=== PATIENT | male | born 1955 | race Caucasian/White ===

== ENCOUNTER 2019-05-30 08:03 | Observation (INO) | payer BC, SELFPAY ==
[2019-05-30] VITALS (12 sets, daily range): BP systolic 114–180; BP diastolic 59–106; PULSE 54–65; RESP 11–20; TEMP 36–36.8; O2SAT 97–98
[2019-05-30] MEDS: Lactated Ringers 1,000 ML 80 ML IV (08:48)
--- NOTE | 2019-05-30 11:14 | W.PM.HP.N ---
Date of service: 05/30/19 Time of Service: 11:14 Assessment and Plan Assessment and plan (1) Bladder mass: Status: Acute (2) Gross hematuria: Status: Acute (3) Elevated PSA: Status: Acute History of Present Illness History of Present Illness Chief Complaint: Hematuria Narrative: 1) Elevated PSA: (2) Prostate nodule: (3) Bladder mass: (4) Gross hematuria: Greater than 50% of this 45 min OV was in counseling and coordination of the assessment/plan. We reviewed reasons for gross hematuria. We also discussed the CTU, which revealed a 2cm mass in the right lateral bladder adjacent to the UVJ. In addition, we correlated his ROMAN, which revealed nodular area to the left lateral area, to the elevated of PSA of 22.9ng/ml. U/A today was negative for infection but did continue to show blood, but only on a microscopic level. Bladder scan noted a 50cc PVR. Based upon exam, patient hx, and imaging/testing done by PCP, we discussed the next steps, which include cysto with TURB-T and prostate resection. Both of these can done in the OR as soon as next week as long as pt is not taking ASA/NSAIDs 3-5 days prior. Pre-op orders were completed and given to the nurse for scheduling. He will be listed as an AM admit and is aware that there is a possibility of overnight stay. Pending the procedure, which two biopsies are planned - 1 for the bladder and 1 for the prostate, pt will have f/u in the office for further discussion. Dictation was done by [employer] voice recognition. Errors may be present within the note. Plan Detail Orders: Urinalysis Dip Only 05/26/19 R31.9 Bladder Residual Scan (Office) 05/26/19 HPI HPI Ramírez is a 63 y/o male here for gross hematuria. He first noticed gross hematuria about 4 years ago. It resolved after a few days. No clots at that time. 2017 was the next bout after a fall. It again lasted a few days and was without clots. March of 2019 he had gross hematuria again that lasted a few days plus had scabs and blood clots. He adds to this information that he is color blind so there may have been more blood but at those mentioned times he could see a drastic change in his urine color. He notes that he had a CTU and PSA done recently via his PCP and that he is aware of the results. Currently he has not seen blood in his urine for the past few weeks. No dysuria, frequency or urgency. ? of retention. He states he needs to push and has a weak stream. Nocturia and the feeling of incomplete emptying. He is currently not taking any prostate medications. 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 Smoker 20 years ranging from 1/2-5ppd Occ beer intake Allergies Reviewed elsewhere in the chart Medications Reviewed elsewhere in the chart Family Hx No known family hx of urology concerns/Ca Review of Systems Const: Denies chills, fever(s) or weight loss Details: No ABN bleeding or bruising No long bone/skeletal pains Card: Denies chest pain or dyspnea Resp: Denies dyspnea GI: Denies abdominal pain, constipation or diarrhea : Reports as per HPI, hematuria, nocturia and urinary hesitancy; Denies dysuria, flank pain, urinary frequency, urinary incontinence or urinary urgency Exam Const Orientation: alert, awake and oriented x3 Other: VS reviewed that were done by nurse Eyes Sclera: sclerae normal Resp Effort & Inspection: normal respiratory effort GI Inspection: normal to inspection and non-distended Palpation: soft and nontender Rectal Exam: prostate abnormal enlarged and nodule (left lateral); nontender General: No CVA tenderness Extrem General: full ROM Vital Signs 05/26/19 14:32 Height 5 ft 10 in Weight 212 lb BMI 30.4 BP 135/93 H Pulse 92 H [facility] Medical History (Updated 05/30/19 @ 08:27 by Nyasia Barnes) Chronic fatigue syndrome Gastro-esophageal reflux disease with esophagitis History of fracture (Acute) left knee Polyarthropathy Skull fracture (Acute) Surgical History History of arthroscopic knee surgery (Chronic) History of colonoscopy (Chronic) History of esophagogastroduodenoscopy (EGD) (Chronic) History of knee replacement (Chronic) Social History Smoking/Tobacco Use Status: Former Tobacco Use Drug use: Occasionally Meds Home Medications and Allergies Home Medications Medication Instructions Recorded Confirmed Type aspirin [Aspirin Low-Strength] 81 mg PO DAILY tab-cap NS 06/13/13 05/30/19 History multivitamin [Daily Vitamin] 1 ea PO DAILY NS 06/13/13 05/30/19 History camphor-methyl salicyl-menthol 1 applic TOPICAL DAILY PRN 05/27/19 05/27/19 History cephalexin 2,000 mg PO DIRECTED 05/27/19 05/27/19 History ibuprofen 200 mg PO Q6H PRN 05/27/19 05/27/19 History Allergies Allergy/AdvReac Type Severity Reaction Status Date / Time No Known Allergies Allergy Unverified 05/30/19 08:28 Exam Resp Effort & Inspection: normal respiratory effort Auscultation: clear to auscultation bilaterally Cardio Rate: regular rate Rhythm: regular rhythm Results Last Vital Signs Temp 36.3 C L 05/30/19 08:33 Pulse 56 L 05/30/19 08:33 Resp 16 05/30/19 08:33 BP 126/82 05/30/19 08:33 Pulse Ox 97 05/30/19 08:33
[2019-05-30] MEDS: ceFAZolin 2 GM/50 ML BAG IVPB (11:51)
[2019-05-30] MEDS: Lidocaine 2% Jelly 6 ML SYR (12:09)
--- NOTE | 2019-05-30 12:29 | BLADDER_PTH ---
PATIENT: Aurelio Guan LOC: U#:[id number] AGE/SX: 63/M [facility] RE[facility]30/[address]: Aravind Gomez MD : 1955 BED: A DIS: 05/31/2019 SPEC #: [id number] RECD: 05/30/19 17:31 STATUS: ANA CRISTINA REQ #: [id number] YUN: 05/30/19 12:[address]: Aravind Gomez DEPT: Surgical Specimen RECD BY: Angeline Souza ENTERED: 05/30/19 17:32 SP TYPE: Bladder OTHR DR: Errol Anaya Tissues: 1 - BLADDER BIOPSY 2 - PROSTATE CURRETTINGS Procedures: GROSS AND MICRO LEVEL 4 Comments: [id number]
--- NOTE | 2019-05-30 14:12 | ROE_ITS ---
DATE OF PROCEDURE: May 30, 2019 PREOPERATIVE DIAGNOSIS: 1. Gross hematuria. 2. Bladder mass on CT scan. 3. Elevated PSA. POSTOPERATIVE DIAGNOSIS: Same. PROCEDURE: 1. Cystoscopy; transurethral resection of bladder tumor. 2. Transurethral prostate biopsy. SURGEON: Aravind Gomez M.D. ANESTHESIA: General. COMPLICATIONS: None. ESTIMATED BLOOD LOSS: Minimal. SPECIMENS REMOVED: 1. Bladder mass. 2. Prostate tissue. HISTORY: This is a 63-year-old gentleman who initially presented with gross hematuria. He was evalu ated with a CT urogram, which demonstrated a right-sided bladder mass. He presents now for transuret hral resection of any visible bladder mass. He's also found to have an elevated PSA. He is unsure of any prior PSA levels. His current result i s 22.9 ng/mL. While we are performing the transurethral resection of his bladder lesion, he is agreeable to transur ethral resection biopsies of the prostate. OPERATIVE REPORT: The patient was brought to the operating room on 05/30/2019. He was given a dose of IV antibiotics. After successful induction of general anesthesia, he was placed in the dorsal litho keisha position. His genitalia was prepped and draped sterilely. 2% Xylocaine jelly was then instilled into the urethra. A 24 [place] resectoscope sheath was passed t hrough the urethra into the bladder. The urethra and bladder were inspected with the 30-degree lens. The pendulous, bulbous and membranous urethras showed no strictures. The prostatic urethra showed si gnificant lateral lobe enlargement. The bladder neck was then entered and the bladder mucosa was inspected. Multiple papillary lesions were seen on the patient's right bladder wall. The largest of these lesio ns measured between 2 and 5 cm. Several smaller lesions were identified. Some stone debris was seen in the largest of the papillary lesions. No similar lesions were found on the left side of the bladder. We then utilized bipolar cautery and a resectoscope loop to resect all the visible tumor. We resecte d down to muscularis. All resected tissue was evacuated and sent to pathology for permanent section. We then switched over to a plasma button and cauterized the resection site for hemostasis. We then switched back to the resection loop, withdrew the scope into the prostatic urethra. Multiple transurethral resection biopsies were taken from the prostatic urethra. All prostate tissue was brenda cuated and sent to pathology for permanent section. We again switched to the plasma button and caute rized the resection site. Because of the depth of the resection in the bladder, we elected not to place intravesical chemothera py in the immediate postop period. We placed a 22 [place] hematuria catheter through the urethra into the bladder. We inflated the catheter balloon with 30 cc's of sterile water. We began continuous b ladder irrigation with saline and the irrigant remained clear. After the completion of the procedure, a digital rectal exam and bimanual exam was performed. No fix ed mass was found. The patient tolerated this procedure well with no complications. cc: Errol Anaya M.D.
[2019-05-30] MEDS: Lactated Ringers 1,000 ML 100 ML IV (14:16)
[2019-05-30] MEDS: ceFAZolin 1 GM/50 ML BAG IVPB (17:17)
[2019-05-30] MEDS: traMADol 50 MG TAB PO (20:23)
[2019-05-30] MEDS: Docusate Sodium 100 MG CAP PO (20:23)
[2019-05-31 00:08] VITALS: BP 104/58; PULSE 69; RESP 18; TEMP 36.7; O2SAT 95
[2019-05-31] MEDS: Lactated Ringers 1,000 ML 100 ML IV (00:36)
[2019-05-31] MEDS: ceFAZolin 1 GM/50 ML BAG IVPB (02:05)
[2019-05-31 05:10] VITALS: BP 115/71; PULSE 61; RESP 16; TEMP 36.7; O2SAT 96
[2019-05-31 06:57] LABS: HCT 40.7 % (40.0-50.0); HGB 13.5 g/dL (13.5-17.5); Mean Corp. HGB Concentration 33.2 g/dL (32.0-36.0); Mean Corpuscular Hemoglobin 29.4 pg (27.0-33.0); Mean Corpuscular Volume 88.7 fL (80-95); Mean Platelet Volume 10.5 fL (8.0-11.0); Platelet Count 180 x1000/uL (130-400); RBC 4.59 m/cumm (4.50-6.00); RBC Distribution Width 12.5 % (11.8-14.1); White Blood Cell Count 12.77 k/cumm (4.4-10.8)
[2019-05-31 07:08] LABS: Anion Gap 5.6 mmol/L (3-11); BUN 13 mg/dL (7-18); CO2 28.4 mmol/L (21.0-32.0); CREATININE 0.91 mg/dL (0.70-1.30); Calcium 8.5 mg/dL (8.5-10.1); Chloride 108 mmol/L (98-107); Glucose 110 mg/dL (74-106); Sodium 142 mmol/L (136-145)
--- NOTE | 2019-05-31 07:28 | W.PM.PROGNOT ---
Date of Service Date of service: 05/31/19 Time of Service: 07:28 Assessment and Plan Assessment and plan (1) Elevated PSA: Status: Acute (2) Bladder mass: Status: Acute Assessment and plan: We would discontinue his bladder irrigation. As long as the urine remains clear without irrigant, we will plugged the irrigation port and send this gentleman home with his catheter to a leg bag. He will return to our office in 3 to 5 days to have his catheter removed. His follow-up will depend on his surgical pathology. Subjective Subjective Interval history since last seen: He has had no clot retention overnight He did have some discomfort related to nocturnal tumescence with his catheter in place. Exam Narrative Exam Narrative: He looks well. He does not appear septic or toxic. His abdomen is soft with no mass His irrigant is clear He is awake and alert His labs from this morning are reviewed and are stable. Objective Objective Clinical Data: Abnormal lab results 05/31/19 05/31/19 Range/Units 06:20 06:20 WBC 12.77 H (4.4-10.8) k/cumm Chloride 108 H (98-107) mmol/L Glucose 110 H (74-106) mg/dL Vital Signs Temperature 36.7 C 05/31/19 05:10 Temperature Source Tympanic 05/31/19 05:10 Pulse 61 05/31/19 05:10 Pulse Rhythm Regular 05/30/19 19:39 Respiratory Rate 16 05/31/19 05:10 Respiratory Effort 05/30/19 19:39 Respiratory Depth Normal 05/30/19 19:39 Respiratory Pattern Normal 05/30/19 19:39 Blood Pressure 115/71 05/31/19 05:10 Pulse Oximetry 96 05/31/19 05:10 Respiratory End-tidal CO2 39 05/30/19 13:36 Oxygen Delivery Method Room Air 05/31/19 05:10 Oxygen Flow Rate 0 05/31/19 05:10 Pain Level 0 05/31/19 05:10 Intake & Output 05/30/19 05/30/19 05/31/19 11:59 23:59 11:59 Intake Total 2548.333 / 2548.333 240 / 240 Balance 2548.333 / 2548.333 240 / 240 Weight 93.9 kg Intake: IV 2047.333 / 2047.333 Oral 500 / 500 240 / 240 Other: Urine Color [place] Kin[place] Urine Appearance Clear Emesis Description None Laboratory Results WBC 12.77 k/cumm (4.4-10.8) H 05/31/19 06:20 RBC 4.59 m/cumm (4.50-6.00) 05/31/19 06:20 Hgb 13.5 g/dL (13.5-17.5) 05/31/19 06:20 Hct 40.7 % (40.0-50.0) 05/31/19 06:20 MCV 88.7 fL (80-95) 05/31/19 06:20 MCH 29.4 pg (27.0-33.0) 05/31/19 06:20 MCHC 33.2 g/dL (32.0-36.0) 05/31/19 06:20 RDW 12.5 % (11.8-14.1) 05/31/19 06:20 Plt Count 180 x1000/uL (130-400) 05/31/19 06:20 MPV 10.5 fL (8.0-11.0) 05/31/19 06:20 Sodium 142 mmol/L (136-145) 05/31/19 06:20 Potassium 4.0 mmol/L (3.5-5.1) 05/31/19 06:20 Chloride 108 mmol/L (98-107) H 05/31/19 06:20 Carbon Dioxide 28.4 mmol/L (21.0-32.0) 05/31/19 06:20 Anion Gap 5.6 mmol/L (3-11) 05/31/19 06:20 BUN 13 mg/dL (7-18) 05/31/19 06:20 Creatinine 0.91 mg/dL (0.70-1.30) 05/31/19 06:20 Estimated GFR/1.73 m2 >= 60.00 (mL/min/1.73m2) 05/31/19 06:20 Glucose 110 mg/dL (74-106) H 05/31/19 06:20 Calcium 8.5 mg/dL (8.5-10.1) 05/31/19 06:20
--- NOTE | 2019-05-31 07:31 | DSE_ITS ---
Date of service: 05/31/19 Time of Service: 07:31 DS: Diagnosis Discharge Diagnosis (1) Elevated PSA: Status: Acute (2) Bladder mass: Status: Acute Discharge Plan Disposition Patient Disposition: HOME Condition: Stable Discharge Details Reason For Visit: BLADDER TUMOR Admit Date/Time: 05/30/19 08:03 Admit Provider: Aravind Gomez Attending Provider: Aravind Gomez Primary Care Provider: Errol Anaya Hospital Course Hospital Course: The patient was brought to the operating room on 05/30/2019 where he underwent cystoscopy. We identified multiple papillary lesions within his bladder. His prostate showed because of the depth of resection, we did not place intravesical chemotherapy intraoperatively. We also took some transurethral biopsies of the prostate given that the patient has a history of an elevated PSA. Postoperatively, he was maintained on continuous bladder irrigation. By postoperative day #1 the irrigant was clear. His postoperative labs were normal. He was tolerating oral medications. His surgical pathology is still pending. On postoperative day #1 we are discontinuing his irrigant and hooking his catheter to a leg bag in preparation for discharge. Home Meds and New Rx's Prescriptions: New tramadol 50 mg tablet 50 mg PO Q6H PRN (Reason: pain) Qty: 20 RF: 0 No Action multivitamin [Daily Vitamin] 1 EACH tablet 1 ea PO DAILY RF: 0 aspirin [Aspirin Low-Strength] 81 MG tablet,chewable 81 mg PO DAILY RF: 0 ibuprofen 200 mg Capsule 200 mg PO Q6H PRNRF: 0 cephalexin 500 mg Capsule 2,000 mg PO DIRECTED RF: 0 camphor-methyl salicyl-menthol 4-30-10 % Cream 1 applic TOPICAL DAILY PRNRF: 0 Discharge Instructions Additional Instructions: Follow-up Thursday morning for catheter removal He will also need a follow-up appointment in 1 to 2 weeks to review the surgical pathology He should remain off work for the remainder of the week. No lifting over 20 pounds for 2 weeks total. He can then return to full activity. I have provided a letter for his work (can be found in his chart) Prescription for tramadol sent to pharmacy of choice Activity:: See above Equipment/Supplies:: Schumacher to leg bag Diet:: As Tolerated DS: Summary Status at Discharge Functional status at discharge: independent ambulation Overall status at discharge: patient is back to baseline Mental Status: mental status grossly normal Speech and Movement: speech and movement normal Mood: congruent mood Affect: normal affect Exam Narrative Exam Narrative: At the time of discharge, he looks well His vital signs are documented elsewhere in this chart His chest wall motion is normal. He is not short of breath at rest. His abdomen is soft with no guarding or rebound tenderness. His urine is clear with no clots He is awake, alert and oriented. At the time of discharge, his surgical pathology is still pending. His morning labs are listed below. Psych Mental Status: mental status grossly normal Speech and Movement: speech and movement normal Mood: congruent mood Affect: normal affect DS: Data Vitals/I&O Vitals and I&O: Vital Signs Temperature 36.7 C 05/31/19 05:10 Temperature Source Tympanic 05/31/19 05:10 Pulse 61 05/31/19 05:10 Pulse Rhythm Regular 05/30/19 19:39 Respiratory Rate 16 05/31/19 05:10 Respiratory Effort 05/30/19 19:39 Respiratory Depth Normal 05/30/19 19:39 Respiratory Pattern Normal 05/30/19 19:39 Blood Pressure 115/71 05/31/19 05:10 Pulse Oximetry 96 05/31/19 05:10 Respiratory End-tidal CO2 39 05/30/19 13:36 Oxygen Delivery Method Room Air 05/31/19 05:10 Oxygen Flow Rate 0 05/31/19 05:10 Pain Level 0 05/31/19 05:10 Intake & Output 05/30/19 05/30/19 05/31/19 11:59 23:59 11:59 Intake Total 2548.333 / 2548.333 240 / 240 Balance 2548.333 / 2548.333 240 / 240 Weight 93.9 kg Intake: IV 8.333 / 2048.333 Oral 500 / 500 240 / 240 Other: Urine Color [place] Urine Appearance Clear Emesis Description None Data Completed and Pending Labs on day of discharge: Labs from last 24 hours 05/31/19 05/31/19 06:20 06:20 WBC 12.77 H RBC 4.59 Hgb 13.5 Hct 40.7 MCV 88.7 MCH 29.4 MCHC 33.2 RDW 12.5 Plt Count 180 MPV 10.5 Sodium 142 Potassium 4.0 Chloride 108 H Carbon Dioxide 28.4 Anion Gap 5.6 BUN 13 Creatinine 0.91 Estimated GFR/1.73 m2 >= 60.00 Glucose 110 H Calcium 8.5 PFSH Medical History Chronic fatigue syndrome Gastro-esophageal reflux disease with esophagitis History of fracture (Acute) left knee Polyarthropathy Skull fracture (Acute) Surgical History History of arthroscopic knee surgery (Chronic) History of colonoscopy (Chronic) History of esophagogastroduodenoscopy (EGD) (Chronic) History of knee replacement (Chronic) Family History Mother No problems noted. Father No problems noted. Other Cancer Diabetes Heart disease Hypertension Substance abuse Social History Smoking/Tobacco Use Status: Former Tobacco Use Drug use: Occasionally
[2019-05-31 07:39] VITALS: BP 132/78; PULSE 61; RESP 16; TEMP 36.8; O2SAT 97
[2019-05-31] MEDS: Docusate Sodium 100 MG CAP PO (09:15)
[2019-05-31] MEDS: Multivitamin TAB 1 TAB PO (09:16)
== END 2019-05-31 10:15 | disposition home or self-care (01) ==
LOC: MS 05-31 07:36 → PDS 06-13 14:00 → MS 06-13 14:00
PROVIDERS: Admitting Provider Urology; PCP Family Medicine; Visit Provider Urology
PROC: 0TBB8ZZ Excision of Bladder, Via Natural or Artificial Opening Endoscopic (ICD-10-PCS; CPT 52235; principal; 2019-05-30 10:15)
PROC: 0VT08ZZ Resection of Prostate, Via Natural or Artificial Opening Endoscopic (ICD-10-PCS; CPT 52601; 2019-05-30 10:15)
DX: R97.20 Elevated prostate specific antigen [PSA] (principal); C67.9 Malignant neoplasm of bladder, unspecified; N32.89 Other specified disorders of bladder; R31.0 Gross hematuria
CPT/HCPCS: 52235; 55700; 80048; 85027; 88305; 99232; 99238; NC; J0690; J1100; J1885; J2405; J2704

== ENCOUNTER 2019-09-19 08:13 | Outpatient (CLI) | payer BC, SELFPAY ==
[2019-09-20 18:37] LABS: COVID-19 RT-PCR UVMMC Result Negative (Negative)
== END 2019-09-19 08:33 ==
PROVIDERS: PCP Family Medicine; Visit Provider Urology
DX: Z01.818 Encounter for other preprocedural examination (principal); Z11.59 Encounter for screening for other viral diseases
CPT/HCPCS: U0003

== ENCOUNTER 2019-09-22 07:20 | Day surgery (SDC) | payer BC, SELFPAY ==
[2019-09-22 07:20] VITALS: BP 141/89; PULSE 65; RESP 18; TEMP 36.5; O2SAT 97
[2019-09-22] MEDS: Lactated Ringers 1,000 ML 80 ML IV (07:55)
--- NOTE | 2019-09-22 08:33 | W.PM.HP.N ---
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 We will move ahead with cystoscopy and possible biopsy to ensure there is no recurrence or progression of his disease. If any suspicious lesions are present, we will be prepared to instill mitomycin-C into the bladder. (2) Bladder cancer: Status: Acute History of Present Illness History of Present Illness Chief Complaint: Bladder Cancer Narrative: This is a 63-year-old gentleman who has a history of hematuria and a bladder mass. 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 He had no sign of muscle invasion, there was a possibility of lamina propria invasion and he did have carcinoma in situ. He then completed a 6-week induction course of intravesical gemcitabine. He presents now for surveillance cystoscopy. He has not seen any gross hematuria. The urinary frequency and incontinence that had been present during his gemcitabine installations has improved dramatically. Review of Systems Narrative: No fevers or chills No vision change or dysphasia No diabetes or thyroid dysfunction No shortness of breath, cough or hemoptysis No chest pain or palpitations No nausea, vomiting, hepatitis, ulcers, jaundice, diarrhea or constipation No seizures, strokes or peripheral neuropathy No bleeding disorders or anemia No gout PFSH Social History Smoking/Tobacco Use Status: Former Tobacco Use Quit Date: 03/30/85 Alcohol Intake: current Alcohol Intake frequency: holidays/special occasions only Drug use: Occasionally Substance use type: marijuana Do you feel safe at home: Yes Additional Social history: not in a relationship Meds Home Medications and Allergies Home Medications Medication Instructions Recorded Confirmed Type aspirin [Aspirin Low-Strength] 81 mg PO DAILY tab-cap NS 06/13/13 09/22/19 History multivitamin [Daily Vitamin] 1 ea PO DAILY NS 06/13/13 09/22/19 History camphor-methyl salicyl-menthol 1 applic TOPICAL DAILY PRN 05/27/19 09/22/19 History cephalexin 2,000 mg PO DIRECTED 05/27/19 09/22/19 History ibuprofen 200 mg PO Q6H PRN 05/27/19 09/22/19 History tramadol 50 mg PO Q6H PRN #20 tab 05/31/19 09/22/19 Rx Allergies Allergy/AdvReac Type Severity Reaction Status Date / Time No Known Allergies Allergy Unverified 09/22/19 07:23 Exam Narrative Exam Narrative: He is in no current distress. He is cooperative. His vital signs are documented elsewhere His chest wall motion is normal. He is not short of breath at rest. His lungs are clear Cardiac exam shows a regular rate and rhythm. His abdomen is soft with no masses. He is awake and alert Results Last Vital Signs Temp 36.5 C 09/22/19 07:20 Pulse 65 09/22/19 07:20 Resp 18 09/22/19 07:20 BP 141/89 H 09/22/19 07:20 Pulse Ox 97 09/22/19 07:20 COVID-19 Screening In the past 14 days, have you traveled outside of [place]?: NO Had IN PERSON contact w/suspected or confirmed C-19 person: Yes
[2019-09-22] MEDS: ceFAZolin 1 GM/50 ML BAG IVPB (09:18)
[2019-09-22] MEDS: Lidocaine 2% Jelly 6 ML SYR (09:33)
--- NOTE | 2019-09-22 09:35 | PAPNONF_PTH ---
PATIENT: Aurelio Guan LOC: [facility] U#:[id number] AGE/SX: 63/M ROOM: RE09/22/[address]: Aravind Gomez MD : 1955 BED: DIS: 09/22/2019 SPEC #: [id number] RECD: 09/22/19 12:47 STATUS: ANA CRISTINA REQ #: [id number] YUN: 09/22/19 09:[address]: Aravind Gomez DEPT: [facility] Cytology RECD BY: Angeline Souza ENTERED: 09/22/19 12:48 SP TYPE: ROBI WILSON DR: Errol Anaya Tissues: 1 - BODY FLUID CYTO(NOT S/U/N/EM)[facility] Procedures: BODY FLUID CYTO(NOT SPU/UR/NIP/ENDOM)[facility] Comments: [id number] (TOTAL VOLUME = 100 ml's URINE (50 ml's URINE & 50 ml's CYTOLYT ADDED IN 2 CONTAINERS)
--- NOTE | 2019-09-22 09:42 | W.PM.DSUDISC ---
Discharge Plan Disposition Patient Disposition: HOME Condition: Stable Discharge Details Reason For Visit: bladder cancer Attending Provider: Aravind Gomez Primary Care Provider: Errol Anaya Home Meds and New Rx's Prescriptions: No Action multivitamin [Daily Vitamin] 1 EACH tablet 1 ea PO DAILY RF: 0 aspirin [Aspirin Low-Strength] 81 MG tablet,chewable 81 mg PO DAILY RF: 0 ibuprofen 200 mg Capsule 200 mg PO Q6H PRNRF: 0 cephalexin 500 mg Capsule 2,000 mg PO DIRECTED RF: 0 camphor-methyl salicyl-menthol 4-30-10 % Cream 1 applic TOPICAL DAILY PRNRF: 0 tramadol 50 mg tablet 50 mg PO Q6H PRN (Reason: pain) Qty: 20 RF: 0 Discharge Instructions Additional Instructions: We will call pt in @ 1 week with cytology result - ask pt to call my office if he has not heard results within 1 week As long as cytology is OK, pt will need cystoscopy in 3 months (can be in office or in OR) Activity:: Activity as Tolerated Shower/Bathe:: 24 hours Diet:: As Tolerated Discharge Orders Discharge Orders: Discharge Order (Routine); Ordered 09/22/19 Ordered By: Aravind Gomez DS: Diagnosis Discharge Diagnosis (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
--- NOTE | 2019-09-22 09:49 | W.PM.OP ---
Date of service: 09/22/19 Time of Service: 09:49 Operative Note Operative Note DATE OF PROCEDURE: 09/22/19 PRE-OP DIAGNOSIS: Bladder cancer POST-OP DIAGNOSIS: same PROCEDURE: Cystoscopy SURGEON: Aravind Gomez ANESTHESIA: other (General without intubation) ESTIMATED BLOOD LOSS: 0 PATHOLOGY: other (Urine for cytology) COMPLICATIONS: None Patient was transported to: same day Patient's condition: stable Indications: This is a 63-year-old gentleman who has a history of hematuria and a bladder mass. 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 There was concern that the lamina propria may have been involved but the muscularis was free of tumor. Did have carcinoma in situ. We were unable to obtain BCG for bladder installations, so he was treated with intravesical gemcitabine. He completed a 6-week induction course. He presents now for his first follow-up cystoscopy. Findings: No papillary or nodular lesions No erythematous patches of mucosa Procedure Description: The patient was brought to the operating room on 09/22/2019. After successful induction of general anesthesia he was placed in the dorsal lithotomy position. His genitalia is prepped and draped. 2% Xylocaine jelly was instilled into the urethra to act as a local anesthetic. A 22 Tamazight cystoscope was passed through the urethra into the bladder. Upon entering the bladder, the urine was collected and sent for cytology. The urethra and bladder were inspected with the 30 degree lens. The pendulous, bulbous and membranous urethra was appeared normal. The prostatic urethra showed some lateral lobe enlargement and increased vascularity, but no papillary lesions. The bladder neck was entered and the bladder mucosa was inspected. On the right side of the bladder, there was a scar from his previous transurethral resection. Both ureteral orifice ease appeared normal with no blood coming from either side. The remainder the bladder was smooth-walled with no papillary or nodular lesions. No erythematous patches worrisome for carcinoma in situ were identified. We reinspected the bladder using a 70 degree lens. This confirmed the absence of papillary or nodular lesions. Based on today's examination, there is no evidence of recurrent tumor. We have however sent a urine for cytology. As long as the cytology is unremarkable, we will plan on a surveillance cystoscopy in 3 months.
[2019-09-22] MEDS: Phenazopyridine 200 MG TAB PO (10:00)
[2019-09-22 10:24] VITALS: BP 132/88; PULSE 60; RESP 18; TEMP 36.5; O2SAT 98
== END 2019-09-22 11:10 | disposition home or self-care (01) ==
PROVIDERS: PCP Family Medicine; Visit Provider Urology
PROC: 0TBB8ZZ Excision of Bladder, Via Natural or Artificial Opening Endoscopic (ICD-10-PCS; CPT 52000; principal; 2019-09-22 08:45)
DX: C67.9 Malignant neoplasm of bladder, unspecified (principal); Z08 Encounter for follow-up examination after completed treatment for malignant neoplasm
CPT/HCPCS: 52000; NC; 88104; J0690; J1100; J1885; J2001; J2405

== ENCOUNTER 2019-10-03 10:57 | Day surgery (SDC) | payer BC, SELFPAY ==
[2019-09-28 10:28] VITALS: BP 159/96; PULSE 69; RESP 18; TEMP 36.4; O2SAT 97
--- NOTE | 2019-10-03 06:59 | W.COLOREPORT ---
Date of service: 10/03/19 Time of Service: 12:26 Colonoscopy Report Date of procedure: 10/03/19 Pre-op diagnosis general: Colon Cancer screening/ Hx of colon polyps Post-op diagnosis procedure note: other (Polyps) Procedure: Colonoscopy with polypectomy Surgeon: Beti Green Anesthesia proc note operative: other (General/ ASA 2/Anna Lal CRNA) Estimated blood loss (mL): 3 Pathology: other (Ascending polyp, descending polyp and rectal polyp) Complications: None Disposition: no change Indications: 63-year-old gentleman who is here to discuss a another colonoscopy. His last one was in 2014 and he did have a tubular adenoma at that time. He was recently diagnosed with bladder cancer which was removed. He had another scope done recently which showed no regrowth of the cancer. He is otherwise healthy. The colonoscopy and prep were reviewed with the patient and questions were answered. Recommend Colonoscopy under sedation Risks, benefits and complications have been reviewed. Complications include but are not limited to bleeding, pain, perforation, missed small lesion/polyp, sore throat, aspiration and adverse reaction to the medications. Questions were entertained and answered to their satisfaction and they wished to proceed. No guarantees were given or implied Prep: Miralax/Dulcolax Procedure Start Time: 12:26 Procedure End Time: 12:53 Retraction Time: 19 minutes Findings: 3 polyps Procedure Description: After informed consent was obtained the patient was taken to the procedure room and placed in a left decubitous position. Monitors were applied and a time out was done. The patients name, date of , procedure, allergies to medications and metal in their body was reviewed. The patient was then sedated. Once sedated and comfortable a rectal exam was done. External exam was normal. Internal exam revealed a normal sphincter tone and no palpable masses. The prostate felt smooth and slightly enlarged. The scope was then introduced and retro-flexed. Grade 1 internal hemorrhoids were identified. The scope was then advanced to the cecum without difficulty. The Ileocecal valve and appendiceal orifice were identified. The prep was adequate. The scope was then slowly retracted over 19 minutes back into the rectum. Polyps were removed with cold forceps in the ascending colon, descending colon and rectum. The scope was removed and the patient was woken up and taken back to Same day surgery in stable condition. The patient tolerated the procedure well and there were no immediate complications. Follow up: The patient should follow up in 3-5 years unless they develop changes in bowel habits or other new gastrointestinal complaints.
--- NOTE | 2019-10-03 07:00 | W.PM.DSUDISC ---
Discharge Plan Disposition Patient Disposition: HOME Condition: Good Discharge Details Reason For Visit: SCREENING,HX OF POLYPS Attending Provider: Beti Green Primary Care Provider: Errol Anaya Home Meds and New Rx's Prescriptions: Continued multivitamin [Daily Vitamin] 1 EACH tablet 1 ea PO DAILY RF: 0 aspirin [Aspirin Low-Strength] 81 MG tablet,chewable 81 mg PO DAILY RF: 0 ibuprofen 200 mg Capsule 200 mg PO Q6H PRNRF: 0 cephalexin 500 mg Capsule 2,000 mg PO DIRECTED RF: 0 camphor-methyl salicyl-menthol 4-30-10 % Cream 1 applic TOPICAL DAILY PRNRF: 0 Discontinued polyethylene glycol 3350 17 gram/dose powder 238 g PO ONCE Qty: 238 RF: 0 bisacodyl [Dulcolax (bisacodyl)] 5 mg tablet,delayed release (DR/EC) 5 mg PO ONCE Qty: 4 RF: 0 Discharge Instructions Instructions: Colorectal Polyps (DC) Additional Instructions: Findings: 3 polyps Follow up: 3-5 years Please call if you develop: fevers >101.5 Nausea or Vomiting Abdominal pain that is not transient DAY SURGERY UNIT POST ENDOSCOPY INSTRUCTIONS 1. Because there will be medication in your system for the next 24 hours, you may feel a little sleepy. Your coordination will be affected. Therefore: a. Do not drive or operate dangerous equipment for 24 hours. b. Do not drink alcohol beverages for 24 hours (not even beer). c. Plan to go home and rest for the day. 2. Generally there are no restrictions on your activity after a day or so has gone by, but you may feel a bit fatigued for a few days. 3 After you arrive home you may have a light meal and return to a normal diet as you can tolerate it without feeling sick to your stomach. 4. After surgery, you may feel pain or discomfort. This should be only transient, but if it persists please contact your doctor. 5. If there are any questions regarding the findings of your procedure, please feel free to contact your doctor. 6. If you are unable to contact your doctor with a problem, contact the hospital at [phone]. 7. Continue all your regular medications unless directed otherwise. I understand the above instructions and have no questions. Signature of Patient or Responsible Adult Escort Date/Time Name of Responsible Adult Escort Signature of Nurse Date/Time Activity:: Activity as Tolerated Diet:: As Tolerated Discharge Orders Discharge Orders: Discharge Order (Routine); Ordered 10/03/19 Ordered By: Beti Green
[2019-10-03 11:34] VITALS: BP 159/96; PULSE 69; RESP 18; TEMP 36.4; O2SAT 97
[2019-10-03] MEDS: Lactated Ringers 1,000 ML 80 ML IV (11:50)
--- NOTE | 2019-10-03 12:30 | BOWEL_PTH ---
PATIENT: Aurelio Guan LOC: [facility] U#:[id number] AGE/SX: 63/M ROOM: RE10/03/[address]: Beti Green MD : 1955 BED: DIS: 10/03/2019 SPEC #: [id number] RECD: 10/03/19 15:38 STATUS: ANA CRISTINA REQ #: [id number] YUN: 10/03/19 12:[address]: Beti Green DEPT: Surgical Specimen RECD BY: Angeline Souza ENTERED: 10/03/19 15:39 SP TYPE: Bowel OTHR DR: Errol Anaya Tissues: 1 - BIOPSY BOWEL 2 - BIOPSY BOWEL 3 - BIOPSY BOWEL Procedures: GROSS AND MICRO LEVEL 4 Comments: [id number]
[2019-10-03 13:30] VITALS: BP 153/94; PULSE 54; RESP 16; TEMP 35.9; O2SAT 97
== END 2019-10-03 13:52 | disposition home or self-care (01) ==
LOC: SUR 10:58
PROVIDERS: PCP Family Medicine; Visit Provider Surgery
PROC: 0DJD8ZZ Inspection of Lower Intestinal Tract, Via Natural or Artificial Opening Endoscopic (ICD-10-PCS; CPT 45378; principal; 2019-10-03 12:30)
DX: Z12.11 Encounter for screening for malignant neoplasm of colon (principal); D12.2 Benign neoplasm of ascending colon; D12.4 Benign neoplasm of descending colon; K62.1 Rectal polyp; Z86.010 Personal history of colon polyps; C67.9 Malignant neoplasm of bladder, unspecified; K64.0 First degree hemorrhoids
CPT/HCPCS: 45380; 88305

== ENCOUNTER 2020-02-09 01:19 | Outpatient (CLI) | payer BC, SELFPAY ==
--- NOTE | 2020-02-09 07:00 | DI.US_ITS ---
EXAM: elevated psa,r97.20 COMPARISON: No exams were available for comparison TECHNIQUE: Ultrasound performed using standard protocol. FINDINGS: Sonography was provided for Dr. Gomez during the performance of a ultrasound-guided prostate biopsy. Please refer to the procedure report for complete details. DATA REPOSITORY:
--- NOTE | 2020-02-09 10:50 | PROST_PTH ---
PATIENT: Aurelio Guan LOC: [facility] U#:[id number] AGE/SX: 64/M ROOM: RE02/09/[address]: Aravind Gomez MD : 1955 BED: DIS: 02/09/2020 SPEC #: [id number] RECD: 02/09/20 12:42 STATUS: ANA CRISTINA REQ #: [id number] YUN: 02/09/20 10:[address]: Aravind Gomez DEPT: Surgical Specimen RECD BY: Angeline Souza ENTERED: 02/09/20 12:44 SP TYPE: PROST OTHR DR: Errol Anaya Tissues: 1 - PROSTATE NEEDLE BIOPSY 2 - PROSTATE NEEDLE BIOPSY 3 - PROSTATE NEEDLE BIOPSY 4 - PROSTATE NEEDLE BIOPSY 5 - PROSTATE NEEDLE BIOPSY 6 - PROSTATE NEEDLE BIOPSY 7 - PROSTATE NEEDLE BIOPSY 8 - PROSTATE NEEDLE BIOPSY 9 - PROSTATE NEEDLE BIOPSY 10 - PROSTATE NEEDLE BIOPSY 11 - PROSTATE NEEDLE BIOPSY 12 - PROSTATE NEEDLE BIOPSY Procedures: GROSS AND MICRO LEVEL 4 Comments: [id number]
--- NOTE | 2020-02-09 11:22 | W.PM.OP ---
Date of service: 02/09/20 Time of Service: 11:22 Operative Note Operative Note DATE OF PROCEDURE: 02/09/20 PRE-OP DIAGNOSIS: Elevated PSA POST-OP DIAGNOSIS: same PROCEDURE: Transrectal ultrasound guided biopsy of the prostate SURGEON: Aravind Gomez ANESTHESIA: local ESTIMATED BLOOD LOSS: 12 PATHOLOGY: other (Laterally directed prostate biopsies) COMPLICATIONS: None Patient was transported to: no change Patient's condition: stable Indications: This is a 64-year-old gentleman who has a history of an elevated PSA. His most recent level was 26.7 ng/mL. He has some asymmetry of the prostate with the left side being more firm than the right. He presents now for prostate biopsy Findings: Prostate volume 42 cc Relative hypoechoic area in the left peripheral zone extending from the base to the mid prostate Procedure Description: Patient was brought to the procedure room on 02/09/2020. He had been given a preprocedural antibiotic and mechanical bowel prep. He was placed in the left lateral position. Transrectal imaging of the prostate was then performed using a variable megahertz transducer. The prostatic volume was calculated at 42 cc. The prostate was a bit asymmetric with the right transition zone being larger than the left. There was a hypoechoic area in the left peripheral zone extending from the base down to the mid prostate range. A periprostatic nerve block was performed using 1% Xylocaine. A total of 12 laterally directed prostate biopsies were taken and sent to pathology for permanent section. The patient tolerated this procedure well with no complications.
== END 2020-02-09 01:39 ==
PROVIDERS: PCP Family Medicine; Visit Provider Urology
DX: R97.20 Elevated prostate specific antigen [PSA] (principal); C61 Malignant neoplasm of prostate
CPT/HCPCS: 55700; 76872; 88305; 76942

== ENCOUNTER 2020-02-09 11:54 | Outpatient (REF) | payer BC, SELFPAY ==
--- NOTE | 2020-02-09 10:15 | PAPNONF_PTH ---
PATIENT: Aurelio Guan LOC: [facility] U#:[id number] AGE/SX: 64/M ROOM: RE02/09/[address]: Aravind Gomez MD : 1955 BED: DIS: 02/09/2020 SPEC #: [id number] RECD: 02/09/20 12:50 STATUS: ANA CRISTINA REQ #: [id number] YUN: 02/09/20 10:[address]: Aravind Gomez DEPT: [facility] Cytology RECD BY: Angeline Souza ENTERED: 02/09/20 12:50 SP TYPE: ROBI WILSON DR: Errol Anaya Tissues: 1 - BODY FLUID CYTO(SPUTUM/URINE)[facility] Procedures: BODY FLUID CYTO(URINE/SPUTUM) Comments: [id number] (TOTAL VOLUME = 90 ml's) (45 ml's URINE & 45 ml's CYTOLYT ADDED IN 2 CONTAINERS)
== END 2020-02-09 12:14 ==
LOC: LBN 11:54
PROVIDERS: PCP Family Medicine; Visit Provider Urology
DX: C67.9 Malignant neoplasm of bladder, unspecified (principal)
CPT/HCPCS: 88104

== ENCOUNTER 2020-02-24 02:26 | Outpatient (CLI) | payer BC, SELFPAY ==
--- NOTE | 2020-02-24 06:45 | DI.CT_ITS ---
EXAM: CT ABDOMEN PELVIS W CLINICAL HISTORY: r/o mets, PROSTATE CA, C61 TECHNIQUE: COMPARISON: No exams were available for comparison FINDINGS: CT examination of the abdomen and pelvis was performed with bolus infusion of 100 cc of Omnipaque 350 . Images obtained through the lung bases are unremarkable. The liver appears normal with no evidence of a focal mass. Spleen is unremarkable in appearance.. Gallbladder and bile ducts are unremarkable. Pancreas is unremarkable in appearance. Adrenals appear normal bilaterally. Kidneys appear normal with no evidence of renal mass, hydronephrosis, or nephrolithiasis and incident al apparent 1 cm in diameter right renal cortical cyst 6 millimeter in diameter left incidental renal cortical cyst. There is no evidence of abdominal or pelvic adenopathy. Abdominal aorta is of normal diameter and no major vascular abnormality is seen. Appendix is normal. No evidence diverticulitis or bowel obstruction. No significant abdominal wall hernia seen. Patient reportedly has prostate carcinoma, prostate enlarged with a somewhat irregular prostatic bord er and poorly defined Gabriela prostatic fat planes. No gross pelvic mass seen. No adenopathy seen pelv is. No focal bony lesion identified in the region surveyed. Impression: No evidence of regional or remote metastatic disease in a patient with reported prostate carcinoma. RADIATION DOSE DELIVERED: 1,492.18mGy.cm Total DLP 1,492.18mGy.cm Total DLP DATA REPOSITORY: All CT scans at this facility are submitted to the National Radiology Data Registry (NRDR) Dose Index Registry (DIR) with the [employer] (A[employer]). RADIATION OPTIMIZATION: All CT scans at this facility use at least one of these dose optimization te chniques: automated exposure control; mA and/or kV adjustment per patient size (includes targeted exa ms where dose is matched to clinical indication); or iterative reconstruction.
--- NOTE | 2020-02-24 06:45 | DI.NM_ITS ---
EXAM: NM BONE SCAN WHOLE BODY GRP CLINICAL HISTORY: r/o mets, PROSTATE CA, C61. COMPARISON: No exams were available for comparison EXAMINATION: Whole body bone scan was performed with intravenous infusion of 26 millicuries of techn etium 99 labeled methylene diphosphonate. Whole body imaging and planar imaging cranial in thoracic region was obtained. FINDINGS: Note is made of a left knee prosthesis with unremarkable periprosthetic minimally increased uptake. No other focal area of increased uptake is identified in the axial or appendicular skeleton as seen. There is normal urinary tract uptake. IMPRESSION: No evidence of bony metastatic disease in a patient with a history of prostate carcinoma. Essentially normal bone scan.
[2020-02-24 08:36] LABS: CREATININE 1.03 mg/dL (0.70-1.30)
[2020-02-24] MEDS: Omnipaque 350 MG/ML 50 ML BTL PO (09:21)
[2020-02-24] MEDS: Omnipaque 350 MG/ML 100 ML BTL IV (09:52)
[2020-02-24] MEDS: Normal Saline Flush 10 ML SYR IVP (09:53)
[2020-02-24] MEDS: Normal Saline - Diluent 50 ML VIAL IV (09:53)
== END 2020-02-24 02:46 ==
PROVIDERS: PCP Family Medicine; Visit Provider Urology
DX: C61 Malignant neoplasm of prostate (principal)
CPT/HCPCS: 36415; 78306; 74177; 82565; J3490; Q9967

== ENCOUNTER 2020-07-11 03:17 | Outpatient (CLI) | payer BC, SELFPAY ==
[2020-07-11 15:09] LABS: ALT 22 U/L (16-63); AST 23 U/L (15-37); Albumin 4.1 g/dL (3.4-5.0); Alkaline Phosphatase 79 U/L (46-116); Bilirubin, Direct 0.2 mg/dL (0.0-0.2); Bilirubin, Total 0.7 mg/dL (0.2-1.0); Total Protein 7.7 g/dL (6.4-8.2)
== END 2020-07-11 03:18 | disposition home or self-care (01) ==
LOC: LBO 03:17
PROVIDERS: PCP Family Medicine; Visit Provider Radiology Radiation Oncology
DX: C61 Malignant neoplasm of prostate (principal)
CPT/HCPCS: 36415; 80076

== ENCOUNTER 2020-07-13 13:06 | Outpatient (REF) | payer BC, SELFPAY ==
[2020-07-13 13:49] LABS: Bilirubin Negative (Negative); Blood Negative (Negative); Clarity Clear (Clear); Glucose Negative (Negative); Ketones Negative (Negative); Leukocyte Esterase Negative (Negative); Nitrite Negative (Negative); Urobilinogen 0.2 EU/dL (Up TO 0.2)
== END 2020-07-13 13:07 | disposition home or self-care (01) ==
LOC: LBN 13:06
PROVIDERS: PCP Family Medicine; Visit Provider Radiology Radiation Oncology
DX: C61 Malignant neoplasm of prostate (principal)
CPT/HCPCS: 81003

== ENCOUNTER 2020-07-25 03:42 | Outpatient (CLI) | payer BC, SELFPAY ==
[2020-07-25 12:11] LABS: Bilirubin Negative (Negative); Blood Negative (Negative); Clarity Clear (Clear); Glucose Negative (Negative); Ketones Negative (Negative); Leukocyte Esterase Negative (Negative); Nitrite Negative (Negative); Specific Gravity <= 1.005 (1.005-1.025); Urobilinogen 0.2 EU/dL (Up TO 0.2)
[2020-07-25 12:23] LABS: ALT 19 U/L (16-63); AST 22 U/L (15-37); Alkaline Phosphatase 67 U/L (46-116); Bilirubin, Direct 0.2 mg/dL (0.0-0.2); Bilirubin, Total 0.9 mg/dL (0.2-1.0)
== END 2020-07-25 03:43 | disposition home or self-care (01) ==
PROVIDERS: PCP Family Medicine; Visit Provider Radiology Radiation Oncology
DX: C61 Malignant neoplasm of prostate (principal); C67.9 Malignant neoplasm of bladder, unspecified
CPT/HCPCS: 36415; 80076; 81003

== ENCOUNTER 2020-08-30 16:43 | Outpatient (REF) | payer BC, SELFPAY ==
[2020-08-30 14:29] LABS: Bilirubin Negative (Negative); Blood Negative (Negative); Clarity Clear (Clear); Glucose Negative (Negative); Ketones Negative (Negative); Leukocyte Esterase Negative (Negative); Nitrite Negative (Negative); Specific Gravity >= 1.030 (1.005-1.025); Urobilinogen 0.2 EU/dL (Up TO 0.2)
== END 2020-08-30 16:44 | disposition home or self-care (01) ==
LOC: LBN 16:43
PROVIDERS: PCP Family Medicine; Visit Provider Radiology Radiation Oncology
DX: C61 Malignant neoplasm of prostate (principal)
CPT/HCPCS: 81003

== ENCOUNTER 2020-10-23 16:45 | Outpatient (REF) | payer BC, SELFPAY ==
--- NOTE | 2020-10-23 15:30 | PAPNONF_PTH ---
[id number]SX: 64/M ROOM: RE10/23/[address]: Aravind Gomez MD : 1955 BED: DIS: 10/23/2020 SPEC #: [id number] RECD: 10/23/20 17:55 STATUS: ANA CRISTINA REQ #: [id number] YUN: 10/23/20 15:[address]: Aravind Gomez DEPT: [facility] Cytology RECD BY: Angeline Souza ENTERED: 10/23/20 17:55 SP TYPE: ROBI WILSON DR: Errol Anaya Tissues: 1 - BODY FLUID CYTO(SPUTUM/URINE)[facility] Procedures: BODY FLUID CYTO(URINE/SPUTUM) Comments: [id number] (TOTAL VOLUME = 70 ml's) (35 ml's URINE & 35 ml'S CYTOLYT ADDED IN 2 CONTAINERS)
== END 2020-10-23 16:46 | disposition home or self-care (01) ==
LOC: NCHCN 16:45
PROVIDERS: PCP Family Medicine; Visit Provider Urology
DX: R30.0 Dysuria (principal); Z85.51 Personal history of malignant neoplasm of bladder; R82.89 Other abnormal findings on cytological and histological examination of urine
CPT/HCPCS: 88104

== ENCOUNTER 2020-11-08 15:19 | Outpatient (CLI) | payer BC, SELFPAY ==
[2020-11-08 15:48] LABS: Bilirubin Negative (Negative); Blood Negative (Negative); Clarity Clear (Clear); Glucose Negative (Negative); Ketones Negative (Negative); Leukocyte Esterase Negative (Negative); Nitrite Negative (Negative); Specific Gravity >= 1.030 (1.005-1.025); Urobilinogen 0.2 EU/dL (Up TO 0.2)
[2020-11-09 17:43] LABS: PSA, Ultrasensitive 0.76 ng/mL (<= 4.5)
[2020-11-14 09:40] LABS: Testosterone, Total 36 ng/dL (240-950)
== END 2020-11-08 15:20 | disposition home or self-care (01) ==
LOC: LBO 15:21
PROVIDERS: PCP Family Medicine; Visit Provider Radiology Radiation Oncology
DX: C61 Malignant neoplasm of prostate (principal)
CPT/HCPCS: 36415; 84153; 84403; 81003

== ENCOUNTER 2021-02-12 12:17 | Outpatient (CLI) | payer BC, MEDICARE, SELFPAY ==
[2021-02-14 11:52] LABS: PSA, Ultrasensitive 0.57 ng/mL (<= 4.5)
[2021-02-18 01:16] LABS: Testosterone, Total 28 ng/dL (240-950)
== END 2021-02-12 12:18 | disposition home or self-care (01) ==
LOC: LBO 12:25
PROVIDERS: PCP Family Medicine; Visit Provider Nurse Practitioner Family
DX: C61 Malignant neoplasm of prostate (principal)
CPT/HCPCS: 36415; 84153; 84403

== ENCOUNTER 2021-04-02 14:42 | Outpatient (REF) | payer BC, MEDICARE, SELFPAY ==
--- NOTE | 2021-04-02 14:30 | PAPNONF_PTH ---
PATIENT: Aurelio Guan LOC: [facility] U#:[id number] AGE/SX: 65/M ROOM: RE04/02/[address]: Aravind Gomez MD : 1955 BED: DIS: 04/02/2021 SPEC #: [id number] RECD: 04/02/21 18:18 STATUS: ANA CRISTINA REQ #: [id number] YUN: 04/02/21 14:[address]: Aravind Gomez DEPT: [facility] Cytology RECD BY: Angeline Souza ENTERED: 04/02/21 18:18 SP TYPE: ROBI WILSON DR: Errol Anaya Tissues: 1 - BODY FLUID CYTO(SPUTUM/URINE)[facility] Procedures: BODY FLUID CYTO(URINE/SPUTUM) Comments: [id number] (TOTAL VOLUME = 80 ml) (40 ml URINE & 40 ml CYTOLYT ADDED IN 2 CONTAINERS)
== END 2021-04-02 14:43 | disposition home or self-care (01) ==
LOC: LBN 14:42
PROVIDERS: PCP Family Medicine; Visit Provider Urology
DX: D09.0 Carcinoma in situ of bladder (principal)
CPT/HCPCS: 88104

== ENCOUNTER 2021-05-22 01:57 | Outpatient (CLI) | payer BC, MEDICARE, SELFPAY ==
[2021-05-22 14:17] LABS: Abs Immature Grans 0.02 10^3/uL (0.0-0.06); Absolute Eosinophil Count 0.08 10^3/uL (0.0-0.7); Absolute Lymphocyte Count 0.77 10^3/uL (1.2-3.4); Absolute Monocyte Count 0.46 10^3/uL (0.1-0.8); Absolute Neutrophil Count 3.18 10^3/uL (1.2-6.7); Eosinophils % 1.8; HCT 39.2 % (40.0-50.0); HGB 12.5 g/dL (13.5-17.5); Immature Grans % 0.4; Lymphocytes % 17.1; MCH 29.2 pg (27.0-33.0); MCHC 31.9 % (32.0-36.0); MCV 91.6 fL (80-95); MPV 9.7 fL (8.0-11.0); Monocytes % 10.2; Neutrophils % 70.5; Nucleated RBC 0 %; Platelet Count 169 10^3/uL (130-400); RBC 4.28 10^6/uL (4.36-5.78); RDW 12.1 % (11.8-14.1); RDW-SD 40.6 fL; WBC 4.51 10^3/uL (4.4-10.8)
[2021-05-22 14:27] LABS: ALT 18 U/L (16-63); AST 27 U/L (15-37); Albumin 3.8 g/dL (3.4-5.0); Alkaline Phosphatase 92 U/L (46-116); Anion Gap 7.4 mmol/L (3-11); BUN 19 mg/dL (7-18); Bilirubin, Total 0.6 mg/dL (0.2-1.0); CO2 30.6 mmol/L (21.0-32.0); CREATININE 0.9 mg/dL (0.70-1.30); Chloride 103 mmol/L (98-107); Glucose 167 mg/dL (74-106); Potassium 3.8 mmol/L (3.5-5.1); Sodium 141 mmol/L (136-145); Total Protein 7.5 g/dL (6.4-8.2)
[2021-05-24 16:00] LABS: PSA, Ultrasensitive 0.46 ng/mL (<= 4.5)
[2021-05-28 16:25] LABS: Testosterone, Total 22 ng/dL (240-950)
== END 2021-05-22 01:58 | disposition home or self-care (01) ==
LOC: LBO 01:57
PROVIDERS: PCP Family Medicine; Visit Provider Nurse Practitioner Family
DX: C61 Malignant neoplasm of prostate (principal)
CPT/HCPCS: 36415; 80053; 84153; 84403; 85025

== ENCOUNTER 2021-08-30 01:43 | Outpatient (CLI) | payer BC, SELFPAY ==
[2021-08-30 14:41] LABS: Abs Immature Grans 0.01 10^3/uL (0.0-0.06); Absolute Basophil Count 0.01 10^3/uL (0.0-0.2); Absolute Eosinophil Count 0.14 10^3/uL (0.0-0.7); Absolute Lymphocyte Count 0.94 10^3/uL (1.2-3.4); Absolute Monocyte Count 0.48 10^3/uL (0.1-0.8); Absolute Neutrophil Count 2.44 10^3/uL (1.2-6.7); Basophils % 0.2; Eosinophils % 3.5; HCT 38.9 % (40.0-50.0); HGB 12.8 g/dL (13.5-17.5); Immature Grans % 0.2; Lymphocytes % 23.4; MCH 29.3 pg (27.0-33.0); MCHC 32.9 % (32.0-36.0); MCV 89 fL (80-95); MPV 9.7 fL (8.0-11.0); Monocytes % 11.9; Neutrophils % 60.8; Platelet Count 158 10^3/uL (130-400); RBC 4.37 10^6/uL (4.36-5.78); RDW 12.1 % (11.8-14.1); RDW-SD 39.5 fL; WBC 4.02 10^3/uL (4.4-10.8)
[2021-08-30 15:38] LABS: ALT 17 U/L (16-63); AST 25 U/L (15-37); Albumin 3.9 g/dL (3.4-5.0); Alkaline Phosphatase 75 U/L (46-116); Anion Gap 8.2 mmol/L (3-11); BUN 18 mg/dL (7-18); Bilirubin, Total 0.6 mg/dL (0.2-1.0); CO2 29.8 mmol/L (21.0-32.0); CREATININE 0.9 mg/dL (0.70-1.30); Chloride 103 mmol/L (98-107); Glucose 119 mg/dL (74-106); Sodium 141 mmol/L (136-145); Total Protein 7.2 g/dL (6.4-8.2)
[2021-09-02 10:56] LABS: PSA, Ultrasensitive 0.22 ng/mL (<= 4.5)
[2021-09-04 00:44] LABS: Testosterone, Total 33 ng/dL (240-950)
== END 2021-08-30 01:44 | disposition home or self-care (01) ==
LOC: LBO 01:44
PROVIDERS: PCP Family Medicine; Visit Provider Nurse Practitioner Family
DX: C61 Malignant neoplasm of prostate (principal)
CPT/HCPCS: 36415; 80053; 84153; 84403; 85025

== ENCOUNTER 2021-10-01 13:51 | Outpatient (REF) | payer BC, SELFPAY ==
--- NOTE | 2021-10-01 13:20 | PAPNONF_PTH ---
PATIENT: Aurelio Guan LOC: [facility] U#:[id number] AGE/SX: 65/M ROOM: RE10/01/[address]: Aravind Gomez MD : 1955 BED: DIS: 10/01/2021 SPEC #: [id number] RECD: 10/01/21 15:21 STATUS: ANA CRISTINA REQ #: [id number] YUN: 10/01/21 13:[address]: Aravind Gomez DEPT: [facility] Cytology RECD BY: Amisha Reese ENTERED: 10/01/21 15:23 SP TYPE: ROBI WILSON DR: Errol Anaya Tissues: 1 - BODY FLUID CYTO(SPUTUM/URINE)[facility] Procedures: BODY FLUID CYTO(URINE/SPUTUM) Comments: [id number] URINE TOTAL VOLUME = 80 CC (VOLUME OF SPEC.= 160 CC) (80 CC URINE) (80 CC CYTOLYT) 2 CONTAINERS REFRIGERATED
== END 2021-10-01 13:52 | disposition home or self-care (01) ==
LOC: LBN 13:51
PROVIDERS: PCP Family Medicine; Visit Provider Urology
DX: D09.0 Carcinoma in situ of bladder (principal)
CPT/HCPCS: 88104

== ENCOUNTER 2021-11-28 04:50 | Outpatient (CLI) | payer BC, SELFPAY ==
[2021-11-28 09:14] LABS: Abs Immature Grans 0.01 10^3/uL (0.0-0.06); Absolute Basophil Count 0.01 10^3/uL (0.0-0.2); Absolute Eosinophil Count 0.12 10^3/uL (0.0-0.7); Absolute Lymphocyte Count 0.94 10^3/uL (1.2-3.4); Absolute Monocyte Count 0.54 10^3/uL (0.1-0.8); Absolute Neutrophil Count 3.42 10^3/uL (1.2-6.7); Basophils % 0.2; Eosinophils % 2.4; HCT 39.6 % (40.0-50.0); HGB 13.6 g/dL (13.5-17.5); Immature Grans % 0.2; Lymphocytes % 18.7; MCHC 34.3 % (32.0-36.0); MCV 87 fL (80-95); MPV 10.1 fL (8.0-11.0); Monocytes % 10.7; Neutrophils % 67.8; Platelet Count 165 10^3/uL (130-400); RBC 4.54 10^6/uL (4.36-5.78); RDW-SD 38.6 fL; WBC 5.04 10^3/uL (4.4-10.8)
[2021-11-28 10:12] LABS: ALT 15 U/L (16-63); AST 24 U/L (15-37); Albumin 3.7 g/dL (3.4-5.0); Alkaline Phosphatase 75 U/L (46-116); Anion Gap 6.6 mmol/L (3-11); BUN 22 mg/dL (7-18); Bilirubin, Total 0.6 mg/dL (0.2-1.0); CO2 29.4 mmol/L (21.0-32.0); CREATININE 0.9 mg/dL (0.70-1.30); Chloride 104 mmol/L (98-107); Estimated GFR 94.19 (mL/min/1.73m2); Glucose 105 mg/dL (74-106); Sodium 140 mmol/L (136-145); Total Protein 7.7 g/dL (6.4-8.2)
[2021-11-29 16:57] LABS: PSA, Ultrasensitive 0.22 ng/mL (<= 4.5)
[2021-12-04 10:00] LABS: Testosterone, Total 41 ng/dL (240-950)
== END 2021-11-28 04:51 | disposition home or self-care (01) ==
LOC: LBO 04:51
PROVIDERS: PCP Family Medicine; Visit Provider Nurse Practitioner Family
DX: C61 Malignant neoplasm of prostate (principal)
CPT/HCPCS: 36415; 80053; 84153; 84403; 85025

== ENCOUNTER 2022-02-27 03:39 | Outpatient (CLI) | payer BC, SELFPAY ==
[2022-02-27 09:39] LABS: Abs Immature Grans 0.01 10^3/uL (0.0-0.06); Absolute Basophil Count 0.01 10^3/uL (0.0-0.2); Absolute Eosinophil Count 0.23 10^3/uL (0.0-0.7); Absolute Lymphocyte Count 0.98 10^3/uL (1.2-3.4); Absolute Monocyte Count 0.41 10^3/uL (0.1-0.8); Absolute Neutrophil Count 3.04 10^3/uL (1.2-6.7); Basophils % 0.2; Eosinophils % 4.9; HCT 40.5 % (40.0-50.0); HGB 13.6 g/dL (13.5-17.5); Immature Grans % 0.2; Lymphocytes % 20.9; MCH 29.6 pg (27.0-33.0); MCHC 33.6 % (32.0-36.0); MCV 88 fL (80-95); MPV 9.6 fL (8.0-11.0); Monocytes % 8.8; Platelet Count 163 10^3/uL (130-400); RBC 4.59 10^6/uL (4.36-5.78); RDW 12.3 % (11.8-14.1); RDW-SD 40.2 fL; WBC 4.68 10^3/uL (4.4-10.8)
[2022-02-27 10:12] LABS: ALT 15 U/L (16-63); AST 24 U/L (15-37); Albumin 3.9 g/dL (3.4-5.0); Alkaline Phosphatase 73 U/L (46-116); Anion Gap 7.8 mmol/L (3-11); BUN 20 mg/dL (7-18); Bilirubin, Total 0.8 mg/dL (0.2-1.0); CO2 30.2 mmol/L (21.0-32.0); CREATININE 0.9 mg/dL (0.70-1.30); Calcium 9.2 mg/dL (8.5-10.1); Chloride 102 mmol/L (98-107); Estimated GFR 93.61 (mL/min/1.73m2); Glucose 116 mg/dL (74-106); Potassium 3.7 mmol/L (3.5-5.1); Sodium 140 mmol/L (136-145); Total Protein 7.8 g/dL (6.4-8.2)
[2022-02-28 15:14] LABS: PSA, Ultrasensitive 0.21 ng/mL (<= 4.5)
[2022-03-03 18:44] LABS: Testosterone, Total 44 ng/dL (240-950)
== END 2022-02-27 03:40 | disposition home or self-care (01) ==
PROVIDERS: PCP Family Medicine; Visit Provider Nurse Practitioner Family
DX: C61 Malignant neoplasm of prostate (principal)
CPT/HCPCS: 36415; 80053; 84153; 84403; 85025

== ENCOUNTER 2022-04-04 13:40 | Outpatient (REF) | payer BC, SELFPAY ==
--- NOTE | 2022-04-04 12:50 | PAPNONF_PTH ---
PATIENT: Aurelio Guan LOC: [facility] U#:[id number] AGE/SX: 66/M ROOM: RE04/04/[address]: Aravind Gomez MD : 1955 BED: DIS: 04/04/2022 SPEC #: [id number] RECD: 04/04/22 17:25 STATUS: ANA CRISTINA MAZARIEGOS #: [id number] YUN: 04/04/22 12:[address]: Aravind Gomez DEPT: [facility] Cytology RECD BY: Angeline Souza ENTERED: 04/04/22 17:26 SP TYPE: ROBI WILSON DR: Errol Anaya Tissues: 1 - BODY FLUID CYTO(SPUTUM/URINE)[facility] Procedures: BODY FLUID CYTO(URINE/SPUTUM) Comments: [id number] (URINE TV = 80 ml, CYTOLYT ADDED) (REFRIGERATED)
== END 2022-04-04 13:41 | disposition home or self-care (01) ==
LOC: LBN 13:40
PROVIDERS: PCP Family Medicine; Visit Provider Urology
DX: Z85.51 Personal history of malignant neoplasm of bladder (principal); R39.15 Urgency of urination
CPT/HCPCS: 88104

== ENCOUNTER 2022-09-05 01:12 | Outpatient (CLI) | payer BC, SELFPAY ==
[2022-09-05 11:07] LABS: Abs Immature Grans 0.04 10^3/uL (0.0-0.06); Absolute Basophil Count 0.01 10^3/uL (0.0-0.2); Absolute Eosinophil Count 0.12 10^3/uL (0.0-0.7); Absolute Lymphocyte Count 1.09 10^3/uL (1.2-3.4); Absolute Monocyte Count 0.44 10^3/uL (0.1-0.8); Absolute Neutrophil Count 2.61 10^3/uL (1.2-6.7); Basophils % 0.2; Eosinophils % 2.8; HCT 43.6 % (40.0-50.0); HGB 14.4 g/dL (13.5-17.5); Immature Grans % 0.9; Lymphocytes % 25.3; MCH 29.3 pg (27.0-33.0); MCV 89 fL (80-95); MPV 9.5 fL (8.0-11.0); Monocytes % 10.2; Neutrophils % 60.6; Platelet Count 193 10^3/uL (130-400); RBC 4.91 10^6/uL (4.36-5.78); RDW 11.9 % (11.8-14.1); RDW-SD 38.5 fL; WBC 4.31 10^3/uL (4.4-10.8)
[2022-09-05 11:41] LABS: ALT 18 U/L (16-63); AST 24 U/L (15-37); Alkaline Phosphatase 77 U/L (46-116); Anion Gap 6.8 mmol/L (3-11); BUN 23 mg/dL (7-18); Bilirubin, Total 0.9 mg/dL (0.2-1.0); CO2 30.2 mmol/L (21.0-32.0); CREATININE 0.9 mg/dL (0.70-1.30); Calcium 9.2 mg/dL (8.5-10.1); Chloride 103 mmol/L (98-107); Estimated GFR 93.61 (mL/min/1.73m2); Glucose 93 mg/dL (74-106); Potassium 3.9 mmol/L (3.5-5.1); Sodium 140 mmol/L (136-145); Total Protein 8.3 g/dL (6.4-8.2)
[2022-09-08 10:13] LABS: PSA, Ultrasensitive 0.16 ng/mL (<= 4.5)
[2022-09-09 14:46] LABS: Testosterone, Total 79 ng/dL (240-950)
== END 2022-09-05 01:13 | disposition home or self-care (01) ==
PROVIDERS: PCP Family Medicine; Visit Provider Nurse Practitioner Family
DX: C61 Malignant neoplasm of prostate (principal)
CPT/HCPCS: 36415; 80053; 84153; 84403; 85025

== ENCOUNTER → 2022-10-03 12:54 | Outpatient (BNVA) | payer MEDICARE, BC, SELFPAY | PROVIDERS: PCP Family Medicine; Visit Provider Urology | DX: C61 Malignant neoplasm of prostate (principal); Z85.51 Personal history of malignant neoplasm of bladder | CPT/HCPCS: 81003; 99213 ==

== ENCOUNTER 2022-10-03 15:31 | Outpatient (REF) | payer MEDICARE, BC, SELFPAY ==
--- NOTE | 2022-10-03 13:00 | PAPNONF_PTH ---
PATIENT: Aurelio Guan LOC: [facility] U#:[id number] AGE/SX: 66/M ROOM: RE10/03/[address]: Aravind Gomez MD : 1955 BED: DIS: 10/03/2022 SPEC #: [id number] RECD: 10/03/22 17:11 STATUS: ANA CRISTINA REAleksandra #: [id number] YUN: 10/03/22 13:[address]: Aravind Gomez DEPT: [facility] Cytology RECD BY: Ivonne Moreira Tissues: 1 - BODY FLUID CYTO(SPUTUM/URINE)[facility] Procedures: BODY FLUID CYTO(URINE/SPUTUM) Comments: [id number] (TV = 85 ml, 30 ml CYTOLYT ADDED) (REFRIGERATED) (CYTOLYT ADDED AT 1700 pm ON 10/03/2022)
== END 2022-10-03 15:32 | disposition home or self-care (01) ==
LOC: LBN 15:31
PROVIDERS: PCP Family Medicine; Visit Provider Urology
DX: Z85.51 Personal history of malignant neoplasm of bladder (principal); Z85.46 Personal history of malignant neoplasm of prostate; R35.0 Frequency of micturition
CPT/HCPCS: 88104

== ENCOUNTER → 2022-12-16 11:12 | Outpatient (BNVA) | payer MEDICARE, BC, SELFPAY | PROVIDERS: PCP Family Medicine; Referring Provider Family Medicine; Visit Provider Physical Therapy Assistant | DX: Z86.010 Personal history of colon polyps (principal); Z12.11 Encounter for screening for malignant neoplasm of colon ==

== ENCOUNTER 2022-12-29 06:52 | Day surgery (SDC) | payer MEDICARE, BC, SELFPAY ==
--- NOTE | 2022-12-28 20:09 | W.PM.DSUDISC ---
Date of service: 12/29/22 Time of Service: 09:02 Discharge Plan Disposition Patient Disposition: Home Condition: Good Discharge Details Reason For Visit: screening colonoscopy Attending Provider: Reynaldo Hinson Primary Care Provider: Errol Anaya Home Meds and New Rx's Prescriptions: Continued multivitamin [Daily Vitamin] 1 EACH tablet 1 ea PO DAILY aspirin [Aspirin Low-Strength] 81 MG tablet,chewable 81 mg PO DAILY tadalafil [Cialis] 5 mg tablet 5 mg PO DAILY Qty: 90 4RF ibuprofen 200 mg Capsule 200 mg PO Q6H PRN cephalexin 500 mg Capsule 2,000 mg PO DIRECTED Patient Comments: 4 capsules 1 hour prior to dental procedure camphor-methyl salicyl-menthol 4-30-10 % Cream 1 applic TOPICAL DAILY PRN Discontinued polyethylene glycol 3350 17 gram/dose powder 238 g PO ONCE Qty: 238 0RF Rx Instructions: Colonoscopy Bowel Prep- Per Instructions bisacodyl [Dulcolax (bisacodyl)] 5 mg tablet,delayed release (DR/EC) 5 mg PO ONCE Qty: 4 0RF Rx Instructions: Colonoscopy Bowel Prep- Per Instructions Discharge Instructions Instructions: Colorectal Polyps (GEN) Additional Instructions: 1. If tolerated, consume a soft, low fiber diet for 1-2 days. 2. Do not drive, drink alcohol, operate machinery, make critical decisions, or do activities that require coordination or balance for 24 hours. 3. Because air was put into your colon during the procedure, expelling air from your rectum (passing gas or farting) is normal. 4. You may not have a bowel movement for 1-3 days because of the colonoscopy prep. This is normal. 5. Go directly to the emergency room if you notice any of the following: Develop chills (warm to touch), or if you have a thermometer and your temperature is above 101 Difficulty breathing or difficultly swallowing Persistent vomiting Severe abdominal pain, other than gas cramps Severe chest pain Black, tarry stools Any bleeding ? exceeding one tablespoon 6. Call your physician if the site where your intravenous was started becomes red, swollen, painful, and warm to touch. 7. Your physician has reviewed your pre-procedure medications. Please continue to take those medications as previously ordered. You will be given specific information/education regarding any changes to your medications before leaving. Activity:: Activity as Tolerated Diet:: As Tolerated Discharge Orders Discharge Orders: Discharge Order (Routine); Ordered 12/28/22 Ordered By: Reynaldo Hinson DS: Diagnosis Discharge Diagnosis (1) Screen for colon cancer: Status: Acute Asessment and Plan: Follow-up on polypectomy results
--- NOTE | 2022-12-28 20:10 | COLE_ITS ---
Date of service: 12/29/22 Time of Service: 09:04 Colonoscopy Report Date of procedure: 12/29/22 Pre-op diagnosis general: screening colonoscopy Post-op diagnosis procedure note: other (Internal hemorrhoids, colon polyps) Procedure: Colonoscopy with polypectomy Surgeon: Reynaldo Hinson Anesthesia Type: General:No Airway Estimated blood loss (mL): 5 Pathology: other (Colon polyps at 25 cm x 2) Complications: None Disposition: same day Indications: Ramírez is 67 years old and he has had adenomatous polyps on previous colonoscopy. He is here for his next screening colonoscopy. Prep: Miralax/Dulcolax Procedure Start Time: 08:38 Procedure End Time: 08:54 Retraction Time: 13 Findings: 0.25 cm polyps at 25 cm from the anus x2 Procedure Description: After the induction of monitored anesthetic care, and with the patient in left lateral decubitus position, I began by performing an external anorectal exam.? Perineum and skin were normal, as was the anal verge.? There was no evidence of external hemorrhoids.? Next, I performed a digital rectal exam.? I did not appreciate any abnormal findings.? Next, I advanced a colonoscope into the rectal vault.? I performed retroflexion.? There are grade 1 internal hemorrhoids.? Using insufflation, I then advanced the colonoscope beyond the rectal folds and into the sigmoid colon before advancing towards the cecum.? The quality of the prep was excellent.? The scope was noted to be in the cecum by identification of the ileocecal valve and appendiceal orifice.? I then began withdrawing the colonoscope using repeated irrigation as necessary for full evaluation of the colonic mucosa. Around 25 cm from the anal verge I identified 2 small polyps. Both were less than 0.25 cm. ?Both were sessile. ?I was able to remove these with a cold forcep polypectomy. ?I examined the site, and there was minimal bleeding. ?Once this was completed, I continued to withdraw the scope and examine the remainder of the colonic mucosa.?Once the scope was withdrawn to the level of the rectum, great care was taken to examine portions of the rectal folds.? Finally, the scope was withdrawn and the patient was brought to the same-day surgery recovery unit as the anesthetic wore off. ?The findings and ins tructions were shared with the patient prior to discharge.
[2022-12-29 07:01] VITALS: BP 130/93; PULSE 78; RESP 17; TEMP 36.4; O2SAT 97
[2022-12-29] MEDS: Lactated Ringers 1,000 ML 80 ML IV (07:18)
--- NOTE | 2022-12-29 08:31 | W.ANESPRE ---
General Info Date of Service Date Performed: 12/29/22 Height: 5 ft 10 in Weight: 90.6 kg Body Mass Index (BMI): 28.6 Surgical Procedure: Operation Date: 12/29/22 08:20 Proposed Procedure Side Surgeon dwayne Hinson MD Meds Allergies and Home Medications Allergies Allergy/AdvReac Type Severity Reaction Status Date / Time mirabegron [From Myrbetriq] AdvReac Severe hypertensio Verified 12/29/22 07:09 n Home Medication Medication Instructions Recorded Aspirin Low-Strength 81 mg 81 mg PO DAILY 06/13/13 chewable tablet (aspirin) Daily Vitamin (multivitamin) 1 ea PO DAILY 06/13/13 camphor 4 %-methyl salicylate 30 1 applic topical DAILY PRN 05/27/19 %-menthol 10 % topical cream cephalexin 500 mg capsule 2,000 mg PO DIRECTED 05/27/19 ibuprofen 200 mg capsule 200 mg PO Q6H PRN 05/27/19 tadalafil 5 mg tablet (Cialis) 5 mg PO DAILY #90 tabs 10/07/22 Current Visit Medications: Current Medications Generic Name Dose Route Start Last Admin Trade Name Freq PRN Reason Stop Dose Admin Hyoscyamine Sulfate 0.125 mg 12/28/22 20:12 Hyoscyamine 0.125 Mg Sl/Oral/Chew SL 01/27/23 20:11 DIRECTED PRN Ringer's Solution 1,000 mls @ 80 mls/hr 12/29/22 06:00 12/29/22 07:18 IV 01/25/23 23:59 80 mls/hr INFUSION NIXON Administration IV Miscellaneous Supplies 1 each 12/29/22 06:00 Iv Access IV 01/25/23 23:59 DIRECTED NXION Ondansetron HCl 4 mg 12/28/22 20:12 Ondansetron 4 Mg/2 Ml Vial IVP 01/27/23 20:11 Q4H PRN PRN Nausea / Vomiting Sodium Chloride 0 ml 12/29/22 06:00 Normal Saline Flush 10 Ml Syr IV 01/25/23 23:59 PRN PRN Sodium Chloride 0 ml 12/29/22 06:00 Normal Saline 10 Ml Vial IJ 01/25/23 23:59 DIRECTED PRN Sterile Water 0 ml 12/29/22 06:00 Water,Injection,Sterile 10 Ml Vial IJ 01/25/23 23:59 DIRECTED PRN PFSH Active Problems Active Problems: Problem Status Onset Code Screen for colon cancer Z12.11 Prostate cancer C61 Elevated PSA R97.20 Prostate nodule N40.2 Tinnitus H93.19 Polyarthralgia M25.50 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 Bladder cancer C67.9 Medical History Medical History Chronic fatigue syndrome Fracture of left patella Gastro-esophageal reflux disease with esophagitis History of adenomatous polyp of colon (~2013) History of fracture left knee Polyarthropathy Skull fracture Surgical History Surgical History History of arthroscopic knee surgery History of biopsy of bladder (~04/2019) History of colonoscopy (~10/25/14) History of esophagogastroduodenoscopy (EGD) History of knee replacement left Hx of prostate biopsy (~02/2020) Tobacco Smoking/Tobacco Use Status: Former Tobacco Use Alcohol Alcohol Intake: current Alcohol intake frequency: a few times a month Substance Use Substance use: Daily Substance use type: marijuana Details: last smoked yesterday Vital Signs and Lab Results Vital Signs Most Recent Vital Signs in EMR: Most Recent Vital Signs Temp Pulse Resp BP Pulse Ox 36.4 C L 78 17 130/93 H 97 12/29/22 07:01 12/29/22 07:01 12/29/22 07:01 12/29/22 07:01 12/29/22 07:01 Lab Results Blood Type / Crossmatch: No Data to Display Complete Blood Count: No Data to Display Complete Metabolic Panel: No Data to Display Liver Function Panel: No Data to Display Coagulation Panel: No Data to Display Cardiac Panel: No Data to Display Arterial Blood Gas: No Data to Display Venous Blood Gas: No Data to Display Pancreas Panel: No Data to Display Thyroid Panel: No Data to Display Infectious Disease: No Data to Display Blood Cultures: No Data to Display Toxicology Panel: No Data to Display Anesthesia Assessment and Plan Anesthesia History Personal History: No History of Anesthesia Complications Family History: No Family History of Anesthesia Complications Exercise Tolerance Exercise Tolerance: Metabolic Equivalents>4 Pertinent Negatives Pertinent Negatives: No Symptoms of GERD (mild sx weekly. none tpday), No Major Cardiovascular Symptoms or Complaints, No Major Pulmonary Symptoms or Complaints and No History of CVA/TIA Cardiac & Pulmonary Exam Cardiac Exam: Normal S1/S2 Heart Sounds Pulmonary Exam: Clear Bilateral Breath Sounds Implantable Cardiac Device Does patient have a Pacemaker or an ICD?: No Airway Exam Known Difficult Airway: No Mallampati Class: 2 Mouth Opening: Normal (> 3cm) Thyromental Distance: Greater than 3 cm Neck Range of Motion: Full ROM Neck Circumference: Normal Teeth Condition: Normal Dentition ASA Classification ASA Score: ASA 2 Emergency Case?: No NPO Status NPO Status: NPO Clears >2 hours, Solids >8 hours Anesthesia Plan Resuscitation Status: Full Code Anesthesia Technique: General Anesthesia Airway Planned: Natural Airway Monitors Used: Standard Monitors
[2022-12-29 08:32] VITALS: BMI 28.6
--- NOTE | 2022-12-29 08:52 | BOWEL_PTH ---
PATIENT: Aurelio Guan LOC: [facility] U#:[id number] AGE/SX: 67/M ROOM: RE12/29/[address]: Reynaldo Hinson MD : 1955 BED: DIS: 12/29/2022 SPEC #: [id number] RECD: 12/29/22 11:19 STATUS: ANA CRISTINA REQ #: [id number] YUN: 12/29/22 08:[address]: Reynaldo Hinson DEPT: Surgical Specimen RECD BY: Angeline Souza ENTERED: 12/29/22 11:20 SP TYPE: Bowel OTHR DR: Errol Anaya Tissues: 1 - BIOPSY BOWEL Procedures: GROSS AND MICRO LEVEL 4 Comments: [id number]
[2022-12-29 08:57] VITALS: BP 125/83; PULSE 60; RESP 18; TEMP 36.4; O2SAT 96
--- NOTE | 2022-12-29 09:12 | W.ANESPOSTOP ---
Postoperative Evaluation Date, Time and Location Date Performed: 12/29/22 Time Performed: 09:12 Patient Location: Day Surgery Unit Vital Signs Most Recent Imported Vital Signs: Most Recent Vital Signs Temp Pulse Resp BP Pulse Ox 36.4 C L 60 18 125/83 96 12/29/22 08:57 12/29/22 08:57 12/29/22 08:57 12/29/22 08:57 12/29/22 08:57 Pain Score Most Recent Pain Score: Most Recent Pain Score Pain Level 0 12/29/22 08:57 Assessment Mental Status: Awake (Alert & Oriented to Patient Baseline) Airway and Respiratory Function: Patent airway with normal (patient baseline) respiratory exam Cardiovascular Function: Hemodynamically Stable Hydration Status: Adequately Hydrated Nausea & Vomiting: No Nausea or Vomiting Pain: Pt. Denies Any Pain Peripheral Nerve Block: Patient did not receive a nerve block
[2022-12-29 09:14] VITALS: BP 137/84; PULSE 64; RESP 17; TEMP 36.2; O2SAT 98
== END 2022-12-29 09:34 | disposition home or self-care (01) ==
PROVIDERS: PCP Family Medicine; Visit Provider Surgery
PROC: 0DJD8ZZ Inspection of Lower Intestinal Tract, Via Natural or Artificial Opening Endoscopic (ICD-10-PCS; CPT 45378; principal; 2022-12-29 08:15)
DX: Z12.11 Encounter for screening for malignant neoplasm of colon (principal); Z86.010 Personal history of colon polyps; K63.5 Polyp of colon; K64.0 First degree hemorrhoids
CPT/HCPCS: 45380; 88305

== ENCOUNTER 2023-03-26 01:02 | Outpatient (CLI) | payer MEDICARE, BC, SELFPAY ==
[2023-03-27 17:42] LABS: PSA, Ultrasensitive 0.47 ng/mL (<= 4.5)
[2023-03-31 12:31] LABS: Testosterone, Total 446 ng/dL (240-950)
== END 2023-03-26 01:03 | disposition home or self-care (01) ==
PROVIDERS: PCP Family Medicine; Visit Provider Colon & Rectal Surgery
DX: C61 Malignant neoplasm of prostate (principal)
CPT/HCPCS: 36415; 84153; 84403

== ENCOUNTER 2023-08-06 11:15 | Emergency (ER) | payer MEDICARE, BC, SELFPAY ==
[2023-08-06 11:35] VITALS: BP 188/103; PULSE 64; RESP 16; TEMP 37.1; O2SAT 98
--- NOTE | 2023-08-06 12:22 | ED.GENADUL_ITS ---
Discharge Plan Disposition Patient Disposition: Home Condition: Stable Discharge Details Clinical Impression: Facial laceration Primary Care Provider: Errol Anaya ED Provider: Micky Vergara Home Meds and New Rx's Prescriptions: Continued multivitamin [Daily Vitamin] 1 EACH tablet 1 ea PO DAILY aspirin [Aspirin Low-Strength] 81 MG tablet,chewable 81 mg PO DAILY Patient Comments: took a few days ago tadalafil [Cialis] 5 mg tablet 5 mg PO DAILY Qty: 90 4RF ibuprofen 200 mg Capsule 200 mg PO Q6H PRN cephalexin 500 mg Capsule 2,000 mg PO DIRECTED Patient Comments: 4 capsules 1 hour prior to dental procedure camphor-methyl salicyl-menthol 4-30-10 % Cream 1 applic TOPICAL DAILY PRN Discharge Instructions Instructions: Facial Laceration (ED) Additional Instructions: Return in 7 to 10 days to have sutures removed, return sooner if signs of infection develop such as spreading redness or yellow-white discharge from the wound HPI General Mode of arrival: ambulatory . Date/Time Provider Initiated Documentation: 08/06/23 11:29 . Limitations to Documentation: no limitations . Information obtained by: patient . History of Present Illness 67 year old M presents to the emergency department with the chief complaint of head lac, described as moderate, Quality is described as aching, Patient started experiencing this hour(s) (1) and it has been constant. No relieving factors improve symptom(s), No exacerbating factors reported . Patient notes no other symptoms.. Patient did receive the following treatments prior to arrival, none Related Data Home Medications Medication Instructions Recorded Confirmed Aspirin Low-Strength 81 mg 81 mg PO DAILY 06/13/13 08/06/23 chewable tablet (aspirin) Daily Vitamin (multivitamin) 1 ea PO DAILY 06/13/13 08/06/23 camphor 4 %-methyl salicylate 30 1 applic topical DAILY PRN 05/27/19 08/06/23 %-menthol 10 % topical cream cephalexin 500 mg capsule 2,000 mg PO DIRECTED 05/27/19 08/06/23 ibuprofen 200 mg capsule 200 mg PO Q6H PRN 05/27/19 08/06/23 tadalafil 5 mg tablet (Cialis) 5 mg PO DAILY #90 tabs 10/07/22 08/06/23 Previous Rx's Medication Instructions Recorded tadalafil 5 mg tablet (Cialis) 5 mg PO DAILY #90 tabs 10/07/22 Allergies Allergy/AdvReac Type Severity Reaction Status Date / Time mirabegron [From Myrbetriq] AdvReac Severe hypertensio Verified 08/06/23 11:34 n General Stated Complaint: HeadInjury ARCELIA: 3 Review of Systems All systems reviewed & are unremarkable except as noted in HPI and below Constitutional Constitutional: Denies chills, Denies fever(s) and Denies weakness Eyes Eyes: Denies loss of vision Cardiovascular Cardiovascular: Denies chest pain and Denies dyspnea Respiratory Respiratory: Denies cough and Denies dyspnea Gastrointestinal Gastrointestinal: Denies abdominal pain, Denies nausea and Denies vomiting Musculoskeletal Musculoskeletal: Denies joint swelling Neurologic Neurologic: Denies loss of vision and Denies weakness Exam Const General: no acute distress Orientation: alert HENMT Head: no palpable skull fracture Ears: external ears normal and TM's normal bilaterally General nose exam: external nose normal Mouth: moist mucous membranes Eyes General: appearance normal, both eyes and all related structures Neck Neck: normal visual inspection Resp Effort & Inspection: normal respiratory effort and able to speak in complete sentences Cardio Rate: regular rate Skin General skin exam: no rashes or lesions noted Neuro General: patient alert and patient oriented x3 Extrem General: normal to inspection Psych Mental Status: mental status grossly normal Course Vital Signs Vital signs: Vital Signs Temperature 37.1 C 08/06/23 11:35 Pulse 64 08/06/23 11:35 Respiratory Rate 16 08/06/23 11:35 Blood Pressure 188/103 H 08/06/23 11:35 Pulse Oximetry 98 08/06/23 11:35 Temperature 37.1 C 08/06/23 11:35 Temperature Source Temporal Artery Scan 08/06/23 11:35 Pulse 64 08/06/23 11:35 Respiratory Rate 16 08/06/23 11:35 Respiratory Effort Normal, Non-Labored 08/06/23 11:37 Blood Pressure 188/103 H 08/06/23 11:35 Blood Pressure Position Sitting 08/06/23 11:35 Pulse Oximetry 98 08/06/23 11:35 Oxygen Delivery Method Room Air 08/06/23 11:35 Oxygen Flow Rate 0 08/06/23 11:35 Pain Level 4 08/06/23 11:35 Comment [email or web address] this AM 05/09/24 11:35 Procedures Laceration Laceration 1: Site: face Side (If applicable): right Size (cm): 4 Description: linear Depth: simple, single layer Local Anesthetic: Lidocaine 2% and with Epi Amount of anesthesia used (mL): 8 Pre-repair: wound explored and irrigated extensively Skin layer closed with: nylon Size (cm): 5-0 Number of sutures: 5 Technique: simple, interrupted Medical Decision Making 67-year-old male comes in with a head laceration. He states he was working on a tractor when a bar came up and hit him in the forehead, did not fall or sustain any other injuries, no loss of consciousness, has no headache or nausea vomiting. He is unrelated x 4 on arrival with a normal gait. He has a 4 cm laceration that runs just superior to the right eyebrow, no other contusions elsewhere on the head or lax on the head. No midline C-spine tenderness. Given he is not on any anticoagulation and has no headache and, had no loss of consciousness and felt feel any imaging indicated. I copiously irrigated the wound after injecting lidocaine with epi and, closed with five 5-0 nylon sutures. He is stable for discharge, advised to return in 7 to 10 days for suture removal and sooner if signs of infection develop Differential Diagnosis Differential Diagnosis: Laceration, contusion Quality:SDOH Health Related Social Needs: No Data to Display PFSH All Active Problems (Updated 08/06/23 @ 12:27 by Micky Vergara MD) Facial laceration (Acute) Hyperplastic colon polyp (Acute ~12/2022) Prostate cancer (Chronic) Elevated PSA (Acute) Prostate nodule (Acute) Tinnitus (Acute) Polyarthralgia (Acute) Carcinoma in situ of bladder (Acute) Bladder cancer (Acute) Medical History (Updated 08/06/23 @ 12:27 by Micky Vergara MD) Screen for colon cancer Fracture of left patella History of adenomatous polyp of colon (~2013) Skull fracture History of fracture left knee Gastro-esophageal reflux disease with esophagitis Chronic fatigue syndrome Polyarthropathy Surgical History (Updated 12/30/22 @ 14:33 by Shelli Ricardo) History of biopsy of bladder (~04/2019) Hx of prostate biopsy (~02/2020) History of knee replacement left History of arthroscopic knee surgery History of colonoscopy (~12/2022) History of esophagogastroduodenoscopy (EGD) Family History Mother No problems noted. Father No problems noted. Other Cancer Diabetes Heart disease Hypertension Substance abuse Social History (Updated 12/16/22 @ 10:37 by ROSALBA Rasmussen) Smoking/Tobacco Use Status: Former Tobacco Use Quit Date: 03/30/85 Smoking risk assessment performed?: Yes Alcohol Intake: current Alcohol Intake frequency: a few times a month Drug use: Daily Substance use type: marijuana Details: last smoked yesterday Housing: house Do you feel safe at home: Yes Additional Social history: not in a relationship
== END 2023-08-06 12:54 | disposition home or self-care (01) ==
PROVIDERS: Emergency Provider Emergency Medicine; PCP Family Medicine
DX: S01.81XA Laceration without foreign body of other part of head, initial encounter (principal); W22.8XXA Striking against or struck by other objects, initial encounter
CPT/HCPCS: 12013

== ENCOUNTER 2023-09-22 15:56 | Outpatient (CLI) | payer MEDICARE, BC, SELFPAY ==
[2023-09-22 23:16] LABS: PSA, Diagnostic 0.5 ng/mL (<=4.5)
== END 2023-09-22 15:57 | disposition home or self-care (01) ==
LOC: LBO 15:57
PROVIDERS: PCP Family Medicine; Visit Provider Urology
DX: R97.20 Elevated prostate specific antigen [PSA] (principal); N40.2 Nodular prostate without lower urinary tract symptoms
CPT/HCPCS: 36415; 84153

== ENCOUNTER → 2023-10-02 14:09 | Outpatient (BNVA) | payer MEDICARE, BC, SELFPAY | PROVIDERS: PCP Family Medicine; Referring Provider Family Medicine; Visit Provider Urology | DX: C61 Malignant neoplasm of prostate (principal); D09.0 Carcinoma in situ of bladder; C67.9 Malignant neoplasm of bladder, unspecified | CPT/HCPCS: 81003; 99213 ==

== ENCOUNTER 2023-10-02 14:30 | Outpatient (RCR) | payer MEDICARE, BC, SELFPAY ==
--- NOTE | 2023-10-02 14:35 | PAPNONF_PTH ---
PATIENT: Aurelio Guan LOC: [facility] U#:[id number] AGE/SX: 67/M ROOM: RE10/02/[address]: Aravind Gomez MD : 1955 BED: DIS: 10/28/2023 SPEC #: [id number] RECD: 10/05/23 13:46 STATUS: ANA CRISTINA REAleksandra #: [id number] YUN: 10/02/23 14:[address]: Aravind Gomez DEPT: [facility] Cytology RECD BY: Angeline Souza ENTERED: 10/05/23 13:46 SP TYPE: ROBI WILSON DR: Errol Anaya Tissues: 1 - BODY FLUID CYTO(SPUTUM/URINE)[facility] Procedures: BODY FLUID CYTO(URINE/SPUTUM) Comments: [id number] (TV = 80 ml) (REFRIGERATED) (30 ml CYTOLYT ADDED TO 2 CONTAINERS)
== END 2023-10-28 23:59 | disposition home or self-care (01) ==
LOC: LBN 14:30
PROVIDERS: PCP Family Medicine; Visit Provider Urology
DX: D09.0 Carcinoma in situ of bladder (principal)
CPT/HCPCS: 88104

== ENCOUNTER 2024-04-06 04:19 | Outpatient (CLI) | payer MEDICARE, BC, SELFPAY ==
[2024-04-07 19:02] LABS: PSA, Ultrasensitive 0.93 ng/mL (<= 4.5)
== END 2024-04-06 04:20 | disposition home or self-care (01) ==
LOC: LBO 04:19
PROVIDERS: PCP Family Medicine; Visit Provider Physician Assistant
DX: C61 Malignant neoplasm of prostate (principal)
CPT/HCPCS: 36415; 84153

== ENCOUNTER 2024-06-30 03:33 | Outpatient (CLI) | payer MEDICARE, BC, SELFPAY ==
[2024-07-02 12:33] LABS: PSA, Ultrasensitive 0.86 ng/mL (<= 4.5)
[2024-07-04 13:16] LABS: Testosterone, Total 564 ng/dL (240-950)
== END 2024-06-30 03:34 | disposition home or self-care (01) ==
PROVIDERS: PCP Family Medicine; Visit Provider Physician Assistant
DX: C61 Malignant neoplasm of prostate (principal)
CPT/HCPCS: 36415; 84153; 84403

== ENCOUNTER → 2024-10-04 09:41 | Outpatient (BNVA) | payer MEDICARE, BC, SELFPAY | PROVIDERS: PCP Family Medicine; Referring Provider Family Medicine; Visit Provider Urology | DX: C67.9 Malignant neoplasm of bladder, unspecified (principal); D09.0 Carcinoma in situ of bladder | CPT/HCPCS: 99213; 81002 ==

== ENCOUNTER 2024-10-04 14:49 | Outpatient (REF) | payer MEDICARE, BC, SELFPAY ==
--- NOTE | 2024-10-04 10:00 | PAPNONF_PTH ---
PATIENT: Aurelio Guan LOC: [facility] U#:[id number] AGE/SX: 68/M ROOM: RE10/04/[address]: Aravind Gomez MD : 1955 BED: DIS: 10/04/2024 SPEC #: [id number] RECD: 10/04/24 15:11 STATUS: ANA CRISTINA REQ #: [id number] YUN: 10/04/24 10:[address]: Aravind Gomez DEPT: [facility] Cytology RECD BY: Amisha Reese ENTERED: 10/04/24 15:18 SP TYPE: ROBI WILSON DR: Errol Anaya Tissues: 1 - BODY FLUID CYTO(SPUTUM/URINE)[facility] Procedures: BODY FLUID CYTO(URINE/SPUTUM) Comments: [id number] (TOTAL VOL. URINE 82CC ) (REFRIGERATED) (T.VOL URINE + CYTOLYT = 142 CC)DIVIDED IN TWO CUPS
== END 2024-10-04 14:50 | disposition home or self-care (01) ==
LOC: LBN 14:49
PROVIDERS: PCP Family Medicine; Visit Provider Urology
DX: R82.89 Other abnormal findings on cytological and histological examination of urine (principal); C67.9 Malignant neoplasm of bladder, unspecified; D09.0 Carcinoma in situ of bladder
CPT/HCPCS: 88104

== ENCOUNTER 2024-12-27 02:52 | Outpatient (CLI) | payer MEDICARE, BC, SELFPAY | END 2024-12-27 02:53 | disposition home or self-care (01) | PROVIDERS: PCP Family Medicine; Visit Provider Physician Assistant | DX: C61 Malignant neoplasm of prostate (principal) | CPT/HCPCS: 36415; 84153; 84403 ==